=== PATIENT | male | born 2000 | race Hispanic/Latino ===

== ENCOUNTER 2018-04-12 10:29 | Emergency (ER) | payer SELFPAY ==
[2018-04-12] MEDS ORDERED: Sodium Chloride 0.9% 1,000 ML ONE (10:46)
[2018-04-12 11:07] LABS: #Basophils 0.1 thou/uL (0.0-0.2); #Eosinphils 0.3 thou/uL (0.0-0.7); #Lymphocytes 2.5 thou/uL (1.20-3.40); #Monocytes 0.5 thou/uL (0.11-0.59); #Neutrophils 2.5 thou/uL (1.40-6.50); %Basophils 2.2 % (0.0-1.0); %Eosinophils 5.1 % (0.0-10.0); %Lymphocytes 42.2 % (28.0-48.0); %Monocytes 8.3 % (0.0-4.0); %Neutrophils 42.2 % (31.0-61.0); Hemoglobin 14.6 g/dL (14.0-18.0); Mean Corpuscular HGB CONC 32.7 g/dL (32.0-36.0); Mean Corpuscular Hemoglobin 26.4 pg (25.0-35.0); Mean Corpuscular Volume 80.6 fL (78.0-98.0); Mean Platelet Volume 8.8 fL (7.4-10.4); Platelet Count 192 thou/uL (130-400); RBC Distribution Width 12.2 % (11.5-14.5); Red Blood Cell (RBC) Count 5.55 mill/uL (4.00-5.20)
[2018-04-12] MEDS ORDERED: Adacel (T-DAP) 0.5 ML VIAL ONE (11:21)
[2018-04-12 11:22] LABS: ALT (SGPT) 24 U/L (8-55); AST (SGOT) 27 U/L (5-34); Albumin 4.6 g/dL (3.5-5.0); Alkaline Phosphatase 115 U/L (Less than 750); Anion Gap 12 mmol/L (10-20); BUN (Urea Nitrogen) 16 mg/dL (8.9-20.6); Bilirubin, Total 0.4 mg/dL (0.2-1.2); CK (CPK) 246 U/L (30-200); Calc. Creatinine Clearance 0 mL/min (70-130); Calcium 9.8 mg/dL (7.8-10.44); Carbon Dioxide 25 mmol/L (22-29); Chloride 107 mmol/L (98-107); Estimated GFR-MDRD 85; Globulin 2.8 g/dL (2.4-3.5); Glucose 99 mg/dL (70-105); Protein, Total 7.4 g/dL (6.0-8.3); Sodium 140 mmol/L (136-145)
[2018-04-12 11:23] LABS: CKMB 4.8 ng/mL (0-6.6); Troponin I Less than 0.010 ng/mL (< 0.028)
== END 2018-04-12 11:51 | disposition short-term general hospital (02) ==
LOC: NAV ERS 10:29
DX: T21.01XA Burn of unspecified degree of chest wall, initial encounter (principal); T21.02XA Burn of unspecified degree of abdominal wall, initial encounter; T22.051A Burn of unspecified degree of right shoulder, initial encounter; T25.021A Burn of unspecified degree of right foot, initial encounter; W85.XXXA Exposure to electric transmission lines, initial encounter; Y92.009 Unspecified place in unspecified non-institutional (private) residence as the place of occurrence of the external cause; Y99.0 Civilian activity done for income or pay
CPT/HCPCS: 16000; 36415; 80053; 82550; 82553; 84484; 85025; 90471; 90715; 93005; 96361; 96374; J2270; J7050